=== PATIENT | male | born 1985 | race Hispanic/Latino ===

== ENCOUNTER 2017-04-16 21:53 | Emergency (ER) | payer BC ==
[2017-04-16 21:57] VITALS: BP 121/79; PULSE 81; RESP 17; TEMP 98.1; O2SAT 98
[2017-04-16] MEDS ORDERED: TDAP Vaccine 0.5 mL Syr IM ONE (22:17)
--- NOTE | 2017-04-16 22:20 | ED PDOC ---
HPI: General Adult Time Seen by Provider: 04/16/17 22:12 Chief Complaint (Nursing): Trauma Chief Complaint (Provider): etoh fall History Per: Patient Additional Complaint(s): Patient found on sidewalk by EMS with laceration to back of head. LOC unknown. pt admits to drinking etoh today. denies c/o. Past Medical History Reviewed: Historical Data, Nursing Documentation, Vital Signs Vital Signs: Last Vital Signs Temp 98.1 F 04/16/17 21:54 Pulse 81 04/16/17 21:54 Resp 17 04/16/17 21:54 BP 121/79 04/16/17 21:54 Pulse Ox 98 04/17/17 01:21 - Medical History PMH: Anxiety, Atrial Fibrillation Denies: Chronic Kidney Disease - Family History Family History: States: No Known Family Hx - Social History Current smoker - smoking cessation education provided: No Alcohol: Social Drugs: Denies - Immunization History Hx Tetanus Toxoid Vaccination: No - Home Medications Home Medications: Ambulatory Orders Medication Instructions Recorded traMADol [Ultram] 50 mg PO TID PRN #10 tab 06/22/16 - Allergies Allergies/Adverse Reactions: Allergies Allergy/AdvReac Type Severity Reaction Status Date / Time Sulfa (Sulfonamide Allergy RASH Verified 04/16/17 21:57 Antibiotics) Review of Systems ROS Statement: Except As Marked, All Systems Reviewed And Found Negative Physical Exam - Reviewed Nursing Documentation Reviewed: Yes Vital Signs Reviewed: Yes - Physical Exam Appears: Positive for: Non-toxic (intoxicated, responds to verbal stimuli) Head Exam: Negative for: ATRAUMATIC (2cm lac R parietal scalp. no depression) Skin: Positive for: Normal Color, Warm, DRY Eye Exam: Positive for: EOMI, Normal appearance, PERRL Neck: Positive for: Normal, Painless ROM Cardiovascular/Chest: Positive for: Regular Rate, Rhythm Respiratory: Positive for: CNT, Normal Breath Sounds Gastrointestinal/Abdominal: Positive for: Normal Exam, Bowel Sounds, Soft. Negative for: Tenderness Extremity: Positive for: Normal ROM. Negative for: Tenderness Neurologic/Psych: Positive for: Alert (slurred speach, intoxicated), Oriented - ECG O2 Sat by Pulse Oximetry: 98 Medical Decision Making Medical Decision Making: ct head and C spine shows no acute abnormality. incidental thyroid nodule relayed to pt but will add to discharge instructions. will monitor for sobriety and refer to pmd. 0515 pt awake alert, ambulating steady. no signs of withdrawl. will d/c home. Procedures - Time-Out Type of Procedure: lac repair. - Laceration/Wound Repair Head Wound Length (cm): 2 Wound's Depth, Shape: superficial Wound Explored: clean Irrigated w/ Saline (ccs): 500 Wound Repaired With: [place] (3) Layer Closure?: No Wound Complexity: Simple Progress: pt tolerated well. no complications. Disposition - Clinical Impression Clinical Impression: Alcohol intoxication, Scalp laceration, Thyroid nodule - Patient ED Disposition Is Patient to be Admitted: No - Disposition Referrals: Ryan Carrillo MD [Staff Provider] - Disposition: Routine/Home Disposition Time: 05:12 Condition: GOOD Additional Instructions: keep wound clean and dry. dot can be removed in 5 days by pmd. also f/u pmd regarding thyroid mass. return sooner for worsening symptoms. Instructions: Head Injury (ED), Laceration (ED), Thyroid Nodules (ED)
--- NOTE | 2017-04-17 09:32 | CT ---
PROCEDURE: CT HEAD WITHOUT CONTRAST. HISTORY: etoh fall COMPARISON: None available. TECHNIQUE: Axial computed tomography images were obtained through the head/brain without intravenous contrast. Radiation dose: Total exam DLP = not available This CT exam was performed using one or more of the following dose reduction techniques: Automated exposure control, adjustment of the mA and/or kV according to patient size, and/or use of iterative reconstruction technique. FINDINGS: HEMORRHAGE: No intracranial hemorrhage. BRAIN: No mass effect or edema. No atrophy or chronic microvascular ischemic changes. VENTRICLES: Unremarkable. No hydrocephalus. CALVARIUM: Unremarkable. Mild right superior parietal scalp swelling PARANASAL SINUSES: Unremarkable as visualized. No significant inflammatory changes. MASTOID AIR CELLS: Unremarkable as visualized. No inflammatory changes. OTHER FINDINGS: None. IMPRESSION: No acute intracranial hemorrhage
--- NOTE | 2017-04-17 10:10 | CT ---
PROCEDURE: CT Cervical Spine without contrast HISTORY: <etoh fall> COMPARISON: None available. TECHNIQUE: Axial computed tomography images were obtained of the cervical spine without the use of intravenous contrast. Coronal and sagittal reformatted images were created and reviewed. Radiation dose: Total exam DLP = none available This CT exam was performed using one or more of the following dose reduction techniques: Automated exposure control, adjustment of the mA and/or kV according to patient size, and/or use of iterative reconstruction technique. FINDINGS: VERTEBRAE: No acute compression fractures nor retropulsed fragments. There is straightening of the normal cervical lordosis possibly secondary to patient positioning gantry however underlying element of muscle spasm may contribute. Vertebral bodies otherwise exhibit normal alignment. Facets normally aligned. No destructive bony lesion. DISCS/SPINAL CANAL/NEURAL FORAMINA: No significant central canal or neural foraminal stenosis. Discs heights are grossly preserved. PARASPINAL SOFT TISSUES: Unremarkable. OTHER FINDINGS: Note is made of enlargement of the left lobe thyroid gland which appears to contain a large low-attenuation focus that could represent colloid cyst or nodule. Thyroid ultrasound followup is recommended. . This lesion appears to measure approximately 3.3 cm in transverse dimension although may be larger due to incomplete visualization IMPRESSION: No acute fractures. Straightening of the normal cervical lordosis possibly due to patient positioning in the gantry however underlying element of muscle spasm may contribute. Enlarged left lobe thyroid gland with what could represent large low-attenuation lesion. Recommend followup thyroid ultrasound.
== END 2017-04-17 05:42 | disposition home or self-care (01) ==
LOC: H.ER 21:53
DX: S01.01XA Laceration without foreign body of scalp, initial encounter (principal); W19.XXXA Unspecified fall, initial encounter; Y92.410 Unspecified street and highway as the place of occurrence of the external cause; F10.129 Alcohol abuse with intoxication, unspecified; E04.1 Nontoxic single thyroid nodule; F41.9 Anxiety disorder, unspecified; I48.91 Unspecified atrial fibrillation
CPT/HCPCS: 12001; 70450; 72125; 82948; 90471; 90715; 99284; G0480